=== PATIENT | female | born 1965 | race Hispanic/Latino ===

== ENCOUNTER 2020-10-18 06:30 | Day surgery (SDC) | payer OTHER ==
[~2020-10-18] VITALS: Ht 149.9 cm; Wt 63.5 kg
[~2020-10-18 06:30] MED LIST: 0.9%NACL 1000ML 1,000 ML IV ONE; LOSA25TA41 PO
[2020-10-18 07:42] VITALS: BP 130/67
[2020-10-18] MEDS ORDERED: PROPOFOL 10 MG/ML 20ML VIAL IV ONE (08:55)
[2020-10-18] MEDS ORDERED: GLYCOPYRROLATE 1 MG/5 ML SYRINGE ONE (09:10)
[2020-10-18 09:20] VITALS: BP 77/30
[2020-10-18 09:25] VITALS: BP 79/35
[2020-10-18 09:30] VITALS: BP 110/57
[2020-10-18 09:35] VITALS: BP 118/64
[2020-10-18 09:40] VITALS: BP 107/65
== END 2020-10-18 09:50 | disposition home or self-care (01) ==
LOC: DAH 06:30 → ENDO 06:30
PROVIDERS: ATTEND Internal Medicine
DX: Z12.11 Encounter for screening for malignant neoplasm of colon (principal); Z20.822 Contact with and (suspected) exposure to COVID-19; D12.2 Benign neoplasm of ascending colon; D12.3 Benign neoplasm of transverse colon; K21.9 Gastro-esophageal reflux disease without esophagitis; I10 Essential (primary) hypertension; Z79.899 Other long term (current) drug therapy
CPT/HCPCS: 45380; 87635; A4215; A4221; A4222; A4223; A4606; A4620; A4657 ×2; A4663; C9803; J2704; J3490; J7030